=== PATIENT | male | born 1935 | race Caucasian/White ===

== ENCOUNTER 2016-05-08 14:07 | Outpatient (CLI) | payer BC, MEDICARE ==
[2016-05-08 14:10] LABS: Anion Gap 20 mmol/L (10-20); BUN (Urea Nitrogen) 14 mg/dL (8.4-25.7); Calc. Creatinine Clearance 0 mL/min (70-130); Calcium 9.1 mg/dL (7.8-10.44); Carbon Dioxide 28 mmol/L (23-31); Chloride 96 mmol/L (98-107); Estimated GFR-MDRD Greater than 90; Glucose 135 mg/dL (83-110); Sodium 139 mmol/L (136-145)
[2016-05-08 14:11] LABS: Digoxin 0.75 ng/mL (0.8-2.0)
== END 2016-05-08 14:08 | disposition home or self-care (01) ==
LOC: EDBD → MADLAB 14:07
PROVIDERS: ATTEND Obstetrics & Gynecology
DX: I50.32 Chronic diastolic (congestive) heart failure (principal); I48.91 Unspecified atrial fibrillation; J44.1 Chronic obstructive pulmonary disease with (acute) exacerbation
CPT/HCPCS: 36415; 80048; 80162